=== PATIENT | male | born 1985 | race Caucasian/White ===

== ENCOUNTER 2018-07-03 06:44 | Observation (INO) ==
[2018-07-03] MEDS ORDERED: Lactated Ringers 1,000 ML PRIMARY IV ONE (06:50)
[2018-07-03] MEDS ORDERED: LIDOCAINE W/ SODIUM BICARB 0.5 ML SYR ONE (06:50)
[2018-07-03] MEDS ORDERED: Ondansetron ODT Tab 8 MG TAB PO PRN (06:56)
[2018-07-03] MEDS ORDERED: Prochlorperazine Edisylate Inj 10mg/2ml vial IVP PRN (06:56)
[2018-07-03] MEDS ORDERED: ONDANSETRON 4 MG/2 ML VIAL IVP PRN (06:56)
[2018-07-03] MEDS ORDERED: LIDOCAINE W/ SODIUM BICARB 0.5 ML SYR SUBD PRN (06:56)
[2018-07-03] MEDS ORDERED: HYDROmorphone 2 MG/1 ML IVP PRN (06:56)
[2018-07-03] MEDS ORDERED: ATROPINE SULFATE 0.4 MG/1 ML VIAL IVP PRN (06:56)
[2018-07-03] MEDS ORDERED: fentaNYL Inj 100 MCG/2 ML VIAL IVP PRN (06:56)
--- NOTE | 2018-07-03 06:57 | CRNA.PROGR ---
Anesthesia Recovery Phase I - Post Anesthesia Evaluation Patient's Condition on Arrival in Phase I: Stable Patient's Condition on Arrival in Phase II: Stable Pain Level: 5 (medicated)
--- NOTE | 2018-07-03 06:57 | CRNA.PROGR ---
Anesthesia Time - Procedure/Recovery Time Start Date: 07/03/18 End Date: 07/03/18 Anesthesia : Time In: 07:56 Anesthesia : Time Out: 09:53 Anesthesia : Total Time: 117 - Total Anesthesia Time Total Anesthesia Time (minutes): 117 - Other Physical Status: P2 Anesthesia Type: General Anesthesia : ET
--- NOTE | 2018-07-03 06:58 | CRNA.PROGR ---
Post Anesthesia Phase II - Post Anesthesia Phase II Patient Stable and Discharged To: Med/Surg (23 hour obs.) Care Assumed By Surgeon: Other (Dr Quick) Total Chirs Score at Discharge: 9 Post Anesthesia Discharge Criteria Met: Yes
[2018-07-03] MEDS ORDERED: Lactated Ringers 1,000 ML PRIMARY IV SCH ×2 (07:00→11:54)
[2018-07-03] MEDS: Nasal Sanitizer POPSWAB ampule 3 AMP (Nozin) PREOP DOSE ENOS SCH (07:15)
[2018-07-03] MEDS: Lactated Ringers 1,000 ML PRIMARY IV SCH (07:15)
[2018-07-03] MEDS: LIDOCAINE W/ SODIUM BICARB 0.5 ML SYR SUBD PRN (07:15)
[2018-07-03] MEDS ORDERED: fentaNYL Inj 250 MCG/5 ML VIAL ONE (07:17)
[2018-07-03] MEDS ORDERED: MIDAZOLAM HCL 2 MG/2 ML VIAL ONE (07:17)
[2018-07-03] MEDS ORDERED: KETAMINE HCL 100 MG/2 ML SYRINGE IV ONE (07:18)
[2018-07-03] MEDS ORDERED: ROCURONIUM 10 MG/1 ML - 5 ML VIAL IVP ONE (07:18)
[2018-07-03] MEDS ORDERED: ceFAZolin Inj 2gm (Premix) 2 GM/50 ML BAG IV ONE (07:30)
[2018-07-03] MEDS ORDERED: Iothalamate Meglumine 30 ML VIAL IV ONE (07:35)
[2018-07-03] MEDS ORDERED: BUPIVACAINE 0.5% W/ EPI - 10 ML VIAL ONE (07:35)
[2018-07-03] MEDS ORDERED: Sodium Chloride 0.9% vial 50 ML ONE (07:35)
[2018-07-03] MEDS ORDERED: Lidocaine Inj 1% 20 ML ONE (08:00)
[2018-07-03] MEDS: ceFAZolin Inj 2gm (Premix) 2 GM/50 ML BAG IV ONE (08:03)
[2018-07-03] MEDS ORDERED: ONDANSETRON 4 MG/2 ML VIAL ONE (08:23)
[2018-07-03] MEDS ORDERED: DEXAMETHASONE PF 10 MG/1 ML VIAL ONE (08:23)
[2018-07-03] MEDS ORDERED: KETOROLAC 30 MG/1 ML VIAL ONE (08:23)
[2018-07-03] MEDS ORDERED: fentaNYL Inj 100 MCG/2 ML VIAL ONE ×2 (08:44→09:28)
--- NOTE | 2018-07-03 09:09 | DI ---
OPERATIVE CHOLANGIOGRAM, 07/03/2018 8:00 AM : Clinical History: Cholelithiasis. Views: 5 with contrast present on 4 films. Reflux: Reflux into the duodenum. Stones: No retained stone in common duct. Bile Ducts: Normal visualized portions of intrahepatic biliary tree. Reading: Normal operative cholangiogram.
[2018-07-03] MEDS ORDERED: SUGAMMADEX SODIUM 200 MG/2 ML VIAL IV ONE (09:38)
[2018-07-03] MEDS ORDERED: HYDROcodone-APAP 5 MG -325 MG TABLET PO PRN (11:54)
[2018-07-03] MEDS ORDERED: IBUPROFEN 600 MG TABLET PO PRN (11:54)
[2018-07-03 12:27] VITALS: RESP 16
[2018-07-03 12:54] VITALS: BP 153/99; TEMP 97
[2018-07-03 15:17] VITALS: O2SAT 99
== END 2018-07-03 15:42 | disposition home or self-care (01) ==
LOC: OR 06:44 → MED/SURG 06:44 → OPS 06:56 → MED/SURG 12:24 → UNDODISOB 15:42
PROVIDERS: ADMIT Surgery; ATTEND Surgery